=== PATIENT | male | born 1965 | race Caucasian/White ===

== ENCOUNTER 2021-04-18 10:46 | Outpatient (RCR) | payer OTHER, SELFPAY | END 2021-04-26 15:02 | disposition home or self-care (01) | LOC: HO.WCC 10:46 | PROVIDERS: PCP Internal Medicine; Visit Provider Physician Assistant | DX: E11.628 Type 2 diabetes mellitus with other skin complications (principal); E11.65 Type 2 diabetes mellitus with hyperglycemia; Z72.89 Other problems related to lifestyle; Z79.84 Long term (current) use of oral hypoglycemic drugs; Z87.891 Personal history of nicotine dependence; B35.6 Tinea cruris; Z79.2 Long term (current) use of antibiotics | CPT/HCPCS: 99213 ==